=== PATIENT | female | born 1955 | race African-American/Black ===

== ENCOUNTER 2017-08-13 10:29 | Outpatient (CLI) | payer OTHER | END 2017-08-13 20:14 | disposition home or self-care (01) | LOC: SMA 10:29 | PROVIDERS: ATTEND Family Medicine | DX: Z12.31 Encounter for screening mammogram for malignant neoplasm of breast (principal) | CPT/HCPCS: G0202 ==

== ENCOUNTER 2017-09-16 09:07 | Outpatient (CLI) | payer OTHER | END 2017-09-16 20:46 | disposition home or self-care (01) | LOC: SUS 09:07 | PROVIDERS: ATTEND Family Medicine | DX: N63.20 Unspecified lump in the left breast, unspecified quadrant (principal) | CPT/HCPCS: 76642 ==